=== PATIENT | male | born 1965 ===

== ENCOUNTER 2018-03-10 12:48 | Day surgery (SDC) | payer OTHER ==
[~2018-03-10 12:48] MED LIST: Acetaminophen TAB* 325 MG PO PRN; Buffered Lidocaine 0.9% SYRIN* 5 ML/SYR SYRINGE INTRADERM ONE
[2018-03-10] MEDS ORDERED: fentaNYL* 50 MCG/ML 2 ML VIAL (100 MCG VIAL) ONE (13:00)
[2018-03-10] MEDS ORDERED: Midazolam* 1 MG/ML 2 ML VIAL (2 MG) ONE (13:00)
[2018-03-10] MEDS ORDERED: Povidone Iodine 5% OPTH* 30 ML BTL ONE (14:35)
[2018-03-10] MEDS ORDERED: Neomycin/Polymy/Dex OPTH.SUSP* MAXITROL 0.1% 5 ML ONE (14:35)
[2018-03-10] MEDS ORDERED: Cyclopentolate 1% OPTH.SOL* 2 ML BTL ONE (14:35)
[2018-03-10] MEDS ORDERED: Ketorolac 0.5% OPHTH (NF) 0.5 % 5 ML BTL ONE (14:35)
[2018-03-10] MEDS ORDERED: Proparacaine 0.5% OPHTH.SOL* 15 ML BTL ONE (14:35)
[2018-03-10] MEDS ORDERED: acetaZOLAMIDE TAB* 250 MG ONE (14:35)
[2018-03-10] MEDS ORDERED: Phenylephrine 2.5% OPTH.SOL* 2 ML BTL ONE (14:35)
[2018-03-10] MEDS ORDERED: Lidocaine 1%* 5 ML VIAL ONE (14:35)
[2018-03-10] MEDS ORDERED: Lidocaine 2% EPI 1:200000 MPF*10-20 ML VIAL ONE (14:35)
[2018-03-10 15:11] VITALS: BP 101/59
--- NOTE | 2018-03-11 03:20 | OP ---
OPERATIVE NOTE: DATE OF OPERATION: 03/10/18 - [facility] DATE OF : 63 SURGEON: Pedro Khan M.D. PREOPERATIVE DIAGNOSIS: Cataract, left eye. POSTOPERATIVE DIAGNOSIS: Cataract, left eye. OPERATIVE PROCEDURE: Extracapsular cataract extraction with intraocular lens implant, left eye. DESCRIPTION OF PROCEDURE: The patient was brought to the operating room after being given 1/2% Alcaine with epinephrine drops in the preoperative area. The eye was prepped and draped in the usual sterile fashion. Sterile drape and eyelid speculum were placed. Again, topical 1/2% Alcaine with epinephrine was given. A paracentesis incision was made at the 3 o'clock position with the No.75 blade. Clear cornea incision 2.2 x 2.2-mm was created at the 6 o'clock position starting at the anterior limbus using the 2.2-mm keratome. The anterior chamber was irrigated with 0.4 mL of 1% non-preservative intracameral lidocaine and filled with DisCoVisc. A capsulorrhexis was completed using the cystotome and the Utrata forceps. Hydrodissection was performed with balanced salt solution. The lens nucleus was removed with the Phacoemulsification handpiece without incident. Cortex was removed with the irrigation-aspiration handpiece. The capsular bag was re-inflated using DisCoVisc and an SN60WF 20.5 implant was inserted with the shooter. Pupil was very small, so it was dilated with the Malyugin ring prior to capsulorrhexis. Malyugin ring removed after insertion of the lens. The irrigation- aspiration handpiece was used to remove all residual DisCoVisc. The eye was refilled with balanced salt solution and the wound checked and found to be watertight. Topical Maxitrol drops were given. Indication for complex cataract surgery: Pupil abnormalities requiring pupil dilation device. [id number]/[facility] #: [id number] [facility]
== END 2018-03-10 15:20 | disposition home or self-care (01) ==
LOC: OREAST 12:48
PROVIDERS: ATTEND Specialist
DX: H25.812 Combined forms of age-related cataract, left eye (principal); H21.562 Pupillary abnormality, left eye; E11.9 Type 2 diabetes mellitus without complications; Z79.84 Long term (current) use of oral hypoglycemic drugs; Z87.891 Personal history of nicotine dependence
CPT/HCPCS: A9270-GY; J2250; J3010; V2632

== ENCOUNTER 2019-10-28 11:00 | Inpatient (IN) | payer OTHER ==
--- NOTE | 2019-10-28 11:53 | ED ---
Complex/Multi-Sys Presentation - HPI Summary HPI Summary: Patient is a 54 y/o M presenting to [facility] with complaints of expressive aphasia and confusion. He is alert and oriented x1; patient is capable of answering majority of yes or no questions, limited history is able to be obtained. The patient shows a crudely drawn diagram consisting of arrows and boxes, but he is unable to articulate what this drawing represents. The patient is capable of noting that he is having difficulty expressing himself and communicating. Patient denies chest pain, SOB, N/V, abdominal pain, weakness, numbness, drooling when drinking, [place], recent stress, anxiety, depression, SI. He denies recreational drug usage. Patient denies any previous similar episodes of Sx. The patient had a string under his shirt wrapped around his torso. Home medications and allergies are reviewed. - History Of Current Complaint Chief Complaint: EDGeneral Time Seen by Provider: 10/28/19 11:37 Hx Obtained From: Patient Onset/Duration: Still Present Timing: Constant Associated Signs And Symptoms: Positive: Confusion, Other - negative - numbness , drooling when drinking, recent stress, anxiety, depression, SI. Negative: Weakness, Headache, SOB, Chest Pain, Nausea, Vomiting, Abdominal Pain - Allergies/Home Medications Allergies/Adverse Reactions: Allergies Allergy/AdvReac Type Severity Reaction Status Date / Time No Known Allergies Allergy Verified 03/10/18 13:10 Home Medications: Home Medications Simvastatin (NF) [Zocor (NF)] 40 mg PO BEDTIME 03/05/18 [History Confirmed 10/27] metFORMIN* [Glucophage 1000 MG TAB *] 1,000 mg PO BID 03/05/18 [History Confirmed 10/28/19] Candesartan Cilexetil 4 mg PO DAILY 10/28/19 [History Confirmed 10/28/19] glipiZIDE TAB* [Glucotrol TAB*] 10 mg PO DAILY 10/28/19 [History Confirmed 10/27] PMH/Surg Hx/FS Hx/Imm Hx Endocrine/Hematology History: Reports: Hx Diabetes - type 2 Sensory History: Reports: Hx Cataracts - left eye, Hx Contacts or Glasses - readers Denies: Hx Hearing Aid Opthamlomology History: Reports: Hx Cataracts - left eye, Hx Contacts or Glasses - readers - Cancer History Hx Chemotherapy: No - Surgical History Surgery Procedure, Year, and Place: cataract right eye with IOL 2013 Hx Anesthesia Reactions: No Infectious Disease History: No Infectious Disease History: Denies: Traveled Outside the [place] in Last 30 Days - Family History Known Family History: Positive: Diabetes - Social History Alcohol Use: None Substance Use Type: Reports: None Smoking Status (MU): Former Smoker Amount Used/How Often: smoked for 13 years Review of Systems Negative: Chest Pain Negative: Shortness Of Breath Negative: Abdominal Pain, Vomiting, Nausea Neurological/Mental Status: Other - positive - AMS, difficulty expressing himself Negative: Headache, Weakness, Numbness Psychological: Other - negative - recent stress, SI Negative: Anxious, Depressed All Other Systems Reviewed And Are Negative: Yes Physical Exam - Summary Physical Exam Summary: Constitutional: Well-developed, Well-nourished, Alert. (-) Distressed Skin: Warm, Dry HENT: Normocephalic; Atraumatic Eyes: Conjunctiva normal Neck: Musculoskeletal ROM normal neck. (-) JVD, (-) Stridor, (-) Tracheal deviation Cardio: Tachycardic, Heart sounds normal; Intact distal pulses; The pedal pulses are 2+ and symmetric. Radial pulses are 2+ and symmetric. (-) Murmur Pulmonary/Chest wall: Effort normal. (-) Respiratory distress, (-) Wheezes, (-) Rales Abd: Soft, (-) tenderness, (-) Distension, (-) Guarding, (-) Rebound Musculoskeletal: (-) Edema Lymph: (-) Cervical adenopathy Neuro: Alert, Oriented x1, expressive aphasia noted, otherwise no focal neurological deficits, GCS 14. Psych: Mood and affect Normal Triage Information Reviewed: Yes Vital Signs On Initial Exam: Initial Vitals Temp Pulse Resp BP Pulse Ox 97.1 F 110 20 140/93 98 10/28/19 11:06 10/28/19 11:06 10/28/19 11:06 10/28/19 11:06 10/28/19 11:06 Vital Signs Reviewed: Yes Procedures - Sedation Patient Received Moderate/Deep Sedation with Procedure: No Diagnostics - Vital Signs Vital Signs Temp Pulse Resp BP Pulse Ox 10/28/19 11:11 140/93 10/28/19 11:06 97.1 F 110 20 140/93 98 - Laboratory Result Diagrams: 10/28/19 12:39 10/28/19 12:39 Lab Statement: Any lab studies that have been ordered have been reviewed, and results considered in the medical decision making process. - CT BRAIN CT CT Interpretation Completed By: Radiologist Summary of CT Findings: IMPRESSION: No intracranial mass or hemorrhage is noted. THIS REPORT WAS REVIEWED BY ED PHYSICIAN. - EKG 1130 Cardiac Rate: Tachycardia - rate of 103 BPM EKG Rhythm: Sinus Tachycardia Summary of EKG Findings: EKG showed sinus tachycardia with rate of 103 BPM, no ischemic changes, no STEMI. ED physician has reviewed and interpreted this EKG. National Institutes Of Health - NIH Scale Level of Consciousness: Alert/Keenly Responsive Ask Patient the Month and His/Her Age: Neither Correct/Aphasic Ask Pt to Open/Close Eyes and Metal Buggy Operator/Release Non-Paretic Hand: Both Correctly Best Gaze (Only Horizontal Eye Movement): Normal Visual Field Testing: No Visual Loss Facial Paresis-Pt to Smile & Close Eyes or Grimace Symmetry: Normal/Symmetrical Motor Function - Right Arm: No Drift-Holds 10 Seconds Motor Function - Left Arm: No Drift-Holds 10 Seconds Motor Function - Right Leg: No Drift-Holds 10 Seconds Motor Function - Left Leg: Drifts LT 10 seconds Limb Ataxia-Must be out of Proportion to Weakness Present: Absent Sensory (Use Pinprick to Test Arms/Legs/Trunk/Face): Normal Best Language (Describe Picture, Name Items): Some Loss Dysarthria (Read Several Words): Normal Extinction and Inattention: No Abnormality Total Score: 4 Complex Multi-Symp Course/Dx Course Of Treatment: Patient is a 54 y/o M presenting to [facility] with complaints of expressive aphasia and confusion. He is alert and oriented x1; patient is capable of answering majority of yes or no questions, limited history is able to be obtained. The patient shows a crudely drawn diagram consisting of arrows and boxes, but he is unable to articulate what this drawing represents. The patient is capable of noting that he is having difficulty expressing himself and communicating. Patient denies chest pain, SOB, N/V, abdominal pain, weakness , numbness, drooling when drinking, [place], recent stress, anxiety, depression, SI. He denies recreational drug usage. Patient denies any previous similar episodes of Sx. On physical exam, patient is noted to be tachycardic, alert and oriented x1 with expressive aphasia and otherwise no focal neurological deficits, GCS 14. Patient's case was discussed with Dr. Lim, Dr. Lim will evaluate the patient. EKG showed sinus tachycardia with rate of 103 BPM, no ischemic changes , no STEMI. Bloodwork was obtained and within normal limits with exception of chloride 98, glucose 236, lactic acid 3.1. Tox screen was negative. Dr. Lim evaluated the patient and reviewed Brain CT. Dr. Lim notes infarct on CT imaging. 324 mg ASA and 300 mg Plavix administered per Dr. Lim's recommendation, Dr. Lim placed further orders for the patient. 1320 - Patient' s case was discussed with Dr. Hernández, Dr. Hernández accepts for admission. - Diagnoses Provider Diagnoses: CVA (cerebral vascular accident) - Physician Notifications Discussed Care Of Patient With: Diana Lim Time Discussed With Above Provider: 12:06 Instructed by Provider To: Other - Patient's case was discussed with Dr. Lim, Dr. Lim will evaluate the patient. 1313 - Dr. Lim evaluated the patient and reviewed Brain CT, notes infarct. ASA and Plavix recommended. Dr. Lim placed orders. 1320 - Patient's case was discussed with Dr. Hernández, Dr. Hernández accepts for admission. Discharge ED - Sign-Out/Discharge Documenting (check all that apply): Patient Departure - admit - Discharge Plan Condition: Fair Disposition: ADMITTED TO [facility] Referrals: Pedro Gallo MD [Primary Care Provider] - - Billing Disposition and Condition Condition: FAIR Disposition: Admitted to [facility] - Attestation Statements Document Initiated by Julián: Yes Documenting Scribe: BHAVNA MILAN Provider For Whom Julián is Documenting (Include Credential): DAVE CELESTE DO Scribe Attestation: BHAVNA Westbrook, michaeled for DAVE CELESTE DO on 10/28/19 at 1535. Scribe Documentation Reviewed: Yes Provider Attestation: The documentation as recorded by the BHAVNA fay accurately reflects the service I personally performed and the decisions made by me, DAVE CELESTE DO Status of Scribe Document: Viewed
[2019-10-28 12:57] LABS: ABS Basophils 0.1 10^3/ul (0-0.2); ABS Eosinophils 0.1 10^3/ul (0-0.6); ABS Lymphocytes 1.8 10^3/ul (1.0-4.8); ABS Monocytes 0.5 10^3/ul (0-0.8); ABS Neutrophils 6.1 10^3/ul (1.5-7.7); Eosinophil % 1.4 %; Hematocrit 42 % (42-52); Lymphocyte % 21.2 %; Mean Corpuscular HGB Conc 36 g/dL (31-36); Mean Corpuscular Hemoglobin 31 pg (27-31); Mean Corpuscular Volume 85 fL (80-94); Mean Platelet Volume 8.8 fL (7.4-10.4); Nucleated Red Blood Cells % 0.1; Platelet Count 227 10^3/uL (150-450); Red Cell Distribution Width 13 % (10-15); White Blood Count 8.6 10^3/uL (3.5-10.8)
[2019-10-28 13:09] LABS: ALT 18 U/L (7-52); AST 20 U/L (13-39); Albumin 4.2 g/dL (3.2-5.2); Albumin/Globulin Ratio 1.6 (1-3); Alkaline Phosphatase 51 U/L (34-104); Anion Gap 9 mmol/L (2-11); BUN/Creatinine Ratio 15.9 (8-20); Blood Urea Nitrogen 13 mg/dL (6-24); CO2 Carbon Dioxide 28 mmol/L (22-32); Calcium 9.9 mg/dL (8.6-10.3); Chloride 98 mmol/L (101-111); EGFR Non-African American 97.5 (>60); Globulin 2.6 g/dL (2-4); Glucose 236 mg/dL (70-100); Potassium 4.5 mmol/L (3.5-5.0); Sodium 135 mmol/L (135-145); Total Protein 6.8 g/dL (6.4-8.9)
[2019-10-28 13:23] LABS: Acetaminophen < 15 mcg/mL; Alcohol < 10 mg/dL (<10); Salicylate < 2.50 mg/dL (<30)
[2019-10-28] MEDS ORDERED: Clopidogrel TAB* 300 MG PO ONE (13:27)
[2019-10-28] MEDS ORDERED: Aspirin TAB* 325 MG PO ONE (13:27)
[2019-10-28] MEDS ORDERED: Aspirin EC TAB* 81 MG TAB.EC PO SCH (13:35)
[2019-10-28] MEDS ORDERED: Aspirin 81 mg CHEW TAB* 81 MG TAB.CHEW PO ONE (13:45)
--- NOTE | 2019-10-28 14:02 | CONSULT ---
Consult Consult: Neurology Inpatient Consult Note Date of service: 10/28/2019 Reason for consult: Neurology was consulted by Sheldon Foster DO to evaluate the patient for stroke. The history was obtained by the patient. Chief complaint: word finding difficulty History of Present Illness: Mr. Nancy Duong is a 54-year-old male with history of DMII and dyslipidemia who presented to [facility] with symptoms of word finding difficulty. The onset was 1700 on 10/27/2019. He was watching television and working from home. According to Mrs. Duong, who I spoke with on the phone, the patient has been extremely stressed out due to the pandemic and the concern about losing his job. She received a confirmation today that he will not be furloughed. She stated that he suddenly was not speaking right and he can get like this when he is frustrated. Yesterday's symptoms were severe. The patient woke up this morning and noticed that his symptoms were not going away. He was then transferred to the ED by his spouse. The patient is aspirin naive. He has no history of stroke. He has trouble communicating thus history was mostly obtained by his spouse via telephone. NIHSS: 3; right facial droop (1-mild), moderate-severe aphasia (2). Labs, Imaging and Other Diagnostics: WBC: 8.6 HgB: 15 Platelets: 227 Lactic acid IMAGING: CT head without contrast completed on 10/28/2019: hypodensity in the left frontal region consistent with an acute MCA vascular territory ischemic stroke. Past Medical and Surgical History: Hypertension, DMII, cataract surgery. Family History: No family history of stroke or seizures. Social History: Works from home since the pandemic. 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 He denied tobacco or alcohol use. Medications: Simvastatin (NF) [Zocor (NF)] 40 mg PO BEDTIME 03/05/18 [History Confirmed 10/27] metFORMIN* [Glucophage 1000 MG TAB *] 1,000 mg PO BID 03/05/18 [History Confirmed 10/28/19] Candesartan Cilexetil 4 mg PO DAILY 10/28/19 [History Confirmed 10/28/19] glipiZIDE TAB* [Glucotrol TAB*] 10 mg PO DAILY 10/28/19 [History Confirmed 10/27] Allergies No Known Allergies Allergy (Verified 03/10/18 13:10) Review of Systems: A 14-point ROS was obtained and otherwise negative except for what was mentioned in the HPI. Physical Exam: Vitals: Vital Signs - 12 hr Temp Pulse Resp BP Pulse Ox 10/28/19 13:24 92 99 10/28/19 13:11 155/90 10/28/19 12:41 100 134/85 97 10/28/19 12:27 102 96 10/28/19 12:11 151/91 10/28/19 11:42 141/86 10/28/19 11:11 140/93 10/28/19 11:06 97.1 F 110 20 140/93 98 General: well nourished, well developed. Alert, cooperative, no apparent distress, appears stated age. Head: normocephalic, without obvious abnormality Eyes: conjunctivae/corneas clear Neck: supple, symmetrical. No carotid bruit. No lymphadenopathy. Lungs: clear to auscultation bilaterally, non-labored CV: regular rhythm, S1, S2 normal, radial pulses palpable Extremities: normal range of motion with no cyanosis. Skin: no skin lesions or lacerations Psych: affect-broad and normal mood. Easy to establish rapport. Neurological examination: Mental status: awake; alert and oriented to person, place, time, & general circumstances; He has moderate expressive aphasia. He is able to follow 1-2 step commands, speak 1-2 word sentences. He is able to write but switches numbers (eg, 706 instead of 607). Paraphasic errors. He was able to sing and repeat without difficulty. Cranial nerves: I: not tested II, III, IV, : normal confrontation B/L, Pupils midrange and reactive to light , normal consensual response; extraocular muscles are intact; no ptosis; no conjugate or asymmetrical nystagmus V 1/2/3: sensation is intact on forehead, cheeks, and jaw region VII: Mild right facial droop VIII: able to hear throughout the history process IX & X: symmetric palatal elevation XI: normal strength against resistance XII: tongue is symmetrical & midline with no atrophy or fasciculations Motor (R/L): no abnormal movements, no pronator drift. Normal bulk and tone throughout. No fasciculations. Neck extension 5. Shoulder ROM is full. Shoulder abduction 5/5. Elbow flexion 5/5, extension 5/5. Wrist flexion 5/5, extension 5/5. Finger flexion 5/5, extension 5/5, abduction 5/5. Hip flexion 5/5, abduction 5/5. Knee flexion 5/5, extension 5/5. Ankle dorsiflexion 5/5, plantarflexion 5/5. Great toe extension 5/5. Reflexes R L Brachioradialis 2+ 2+ Biceps 2+ 2+ Triceps 2+ 2+ Patella 2+ 2+ Ankle 1 1 Plantar flexor flexor Sensation is intact to light touch throughout. Normal vibration and proprioception at the great toes. Coordination: normal finger to nose and rapid alternating movements. Gait & Station: deferred Assessment: Mr. Nancy Duong is a 54-year-old man with a history of dyslipidemia and DMII who presented to [facility] on 10/28/2019 with sudden onset aphasia. 1. Acute left MCA vascular territory ischemic infarction of unclear etiology. We will evaluated for a cardio emboli or [id number] emboli from proximal atherosclerotic disease. NIHSS:3. He is not a candidate for alteplase therapy. We did not assess for mechanical thrombectomy due to his low NIHSS. The stroke is seen on CT involving the left frontal lobe. Recommendations: - Admit to the hospitalist service - Neuro checks every 4 hours - MRI brain, MRA head, and MRA neck without contrast to help understand the etiology of the stroke. - EEG to evaluate for post-stroke seizures given his elevated lactic acid and questionable tongue injury. - Keep SBP between 130-<180 mmHg - HI started him on normal saline 75 ml/hr to keep him hydrated and slightly increase his BP without using pressors. - Bedside swallow evaluation - Aspirin 325 mg x 1 and Plavix 300 mg x 1. Continue aspirin 81 mg and Plavix 75 mg daily for 21 days (discontinue Plavix 11/18/2019). - Atorvastatin 80 mg nightly. - Stroke education completed. - DVT prophylaxis: SCDs - PT/OT/MAPPING ENGINEER evaluation and treatment Anticipated discharge 10/29/2019. Discussed the above recommendations with Dr. Kristin Lim MD Date: 10/28/2019 Time: 7424
[2019-10-28 14:06] LABS: Cholesterol 187 mg/dL; HDL Cholesterol 47.3 mg/dL; LDL Cholesterol 87 mg/dL; Triglycerides 264 mg/dL
[2019-10-28 14:29] LABS: Urine Appearance Clear; Urine Bilirubin Negative (Negative); Urine Blood 1+ (Negative); Urine Color Yellow; Urine Glucose 3+(>=500 mg/dL) (Negative); Urine Ketones Trace (Negative); Urine Nitrite Negative (Negative); Urine Protein 1+(30 mg/dL) (Negative); Urine Specific Gravity 1.012 (1.010-1.030); Urine Urobilinogen Negative (Negative)
[2019-10-28 14:30] LABS: TSH (Thyroid Stimulating Horm) 1.37 mcIU/mL (0.34-5.60)
[2019-10-28 14:31] LABS: Urine Bacteria Absent (Absent); Urine Red Blood Cell 1+(3-5/hpf) (Absent); Urine White Blood Cell Absent (Absent)
[2019-10-28] MEDS ORDERED: Al Hydrox/Mg Hydrox/Simet LIQ* 30 ML UDC PO PRN (14:34)
[2019-10-28] MEDS ORDERED: Senna TAB 8.6 mg* TAB PO PRN (14:34)
[2019-10-28] MEDS ORDERED: Acetaminophen TAB* 325 MG PO PRN (14:34)
[2019-10-28] MEDS ORDERED: Dextrose 50% Syringe 50 ML* 25 GM/50 ML SYRINGE IV PUSH PRN (14:44)
[2019-10-28 14:50] LABS: Urine Benzodiazepine Screen None Detected (None Detect); Urine Opiates Screen None Detected (None Detect)
[2019-10-28] MEDS ORDERED: Cyanocobalamin INJ * 1,000 MCG/ML VIAL 1 ML VIAL IM ONE (15:32)
[2019-10-28] MEDS ORDERED: Cyanocobalamin TAB* 500 MCG PO SCH (16:00)
--- NOTE | 2019-10-28 16:51 | HP ---
CC: Dr. Gallo * HISTORY AND PHYSICAL: DATE OF ADMISSION: 10/28/19 ATTENDING PHYSICIAN WHILE IN THE HOSPITAL: Dr. Nevaeh Hernández * (dictated by LEWIS Anthony). PRIMARY CARE PROVIDER: Dr. Gallo. CHIEF COMPLAINT: Difficulty with word finding. HISTORY OF PRESENT ILLNESS: Nancy Duong is a 54-year-old male with past medical history significant for hyperlipidemia, diabetes mellitus type 2, and hypertension who presents to the emergency department today due to ongoing difficulty with word finding. This started yesterday evening and he went to bed and woke up and it was still going on and decided to proceed to the emergency department. He was in his normal state of health when he woke up yesterday morning. He is able to answer yes or no questions very well and he is able to make some sentences but at times has difficulty with word finding and cannot complete sentences and does state the wrong word at times. He denies chest palpitations, dizziness, lightheadedness, abnormal gait, chest pain , difficulty breathing, numbness, weakness, tingling of the extremities, changes in his vision. He was already seen in the emergency department by neurologist, Dr. Lim, who has made recommendations as described below. PAST MEDICAL HISTORY: 1. Hyperlipidemia. 2. Diabetes mellitus type 2. 3. Hypertension. PAST SURGICAL HISTORY: Bilateral cataract surgery. CURRENT MEDICATIONS: 1. Metformin 1000 mg p.o. b.i.d. 2. Glipizide 10 mg p.o. daily. 3. Simvastatin 40 mg p.o. at bedtime. 4. Candesartan 4 mg p.o. daily. ALLERGIES: No known drug allergies. FAMILY HISTORY: His parents are living in their late 70s early 80s. They are both overall healthy. Denies history of CVA or coronary artery disease. SOCIAL HISTORY: The patient has 2 children, he lives with them and his . He works in IT. He is a previous smoker, but quit smoking years ago. He denies illicit drug use and drinking. His surrogate medical decision maker should he need one is his ; her name is Leda Clement, her phone number . REVIEW OF SYSTEMS: An 11-point review of systems was completed and all pertinent positives and negatives are above in the HPI and all other systems are negative. PHYSICAL EXAMINATION GENERAL: Middle aged male, lying in hospital bed, appearing comfortable, in no acute distress. VITAL SIGNS: Temperature 97.1, pulse 110, respiratory rate 20, oxygen saturation 98% on room air, blood pressure 140/93. HEENT: Head: Normocephalic, atraumatic. Eyes: PERRL. Sclerae anicteric. EOMI. No nystagmus. ENT: Mucous membranes moist. Smile is symmetrical. Tongue is midline. NECK: Supple. LUNGS: Clear to auscultation throughout. CARDIO: Regular rate and rhythm without murmurs, rubs, or gallops. ABDOMEN: Soft, nontender, nondistended. EXTREMITIES: No clubbing, cyanosis, or edema. NEURO: The patient is alert and oriented x3. His speech is clear, however, does have expressive aphasia. No dysarthria is noted. His strength is 5/5 in all extremities. His sensation is grossly to touch throughout. Face is symmetrical. PSYCH: The patient is pleasant and cooperative. SKIN: Warm, dry, and intact. PERTINENT STUDIES/LAB DATA: White blood cell count 8.6, hemoglobin 15.0, hematocrit 42, platelet count 227. Sodium 135, potassium 4.0, chloride 98, carbon dioxide 28, anion gap 9, BUN 13, creatinine 0.82, glucose 236, lactic acid 3.1, calcium 9.9. LFTs are unremarkable. LDL is 87, HDL is 47.3. TSH is 1.37. Serum salicylates negative. Serum acetaminophen negative. Serum alcohol is negative. Brain CT, impression: No intracranial mass or hemorrhage is noted. EKG: Normal sinus rhythm, rate of 103 beats per minute. Overall, no ST elevations or depressions or T-wave inversions. There is isolated T-wave flattening in lead III. ASSESSMENT AND PLAN: Nancy Duong is a 54-year-old male with past medical history significant for hyperlipidemia, diabetes, hypertension who presents today due to expressive aphasia. The patient will be admitted OBV for: 1. Expressive aphasia. It appears most consistent with a cerebrovascular accident. The patient has already been seen by neurology consult. CTA is negative for acute hemorrhage. MRA head and neck will be ordered per Dr. Lim' s recommendations investigating for large vessel occlusion is pending at this time and MRI of the brain is pending as well. An EEG has been ordered per Dr. Lim's recommendation, however, subclinical seizures seems less likely to me continue at this time. Given the likelihood of cerebrovascular accident, he has been started on an aspirin load of 325 mg and Plavix load of 300 mg and I will continue 81 mg of aspirin and 75 mg of aspirin tomorrow. He takes simvastatin at home, I will be increasing it to him to a high intensity statin of Lipitor. He is outside the tPA window due to his onset of symptoms starting yesterday evening. I have ordered speech therapy for the patient and PT/OT has been ordered as well. He has passed the dysphagia screen of liquids with the nursing staff already. His lactic acid was elevated to 3.1 when he arrived and I will repeat this. This does give small concern for possible subclinical seizure, though it seems less likely still. 2. Diabetes. I will be holding the patient's home oral medications. I will order fingersticks and insulin lispro sliding scale, and hemoglobin A1c has been ordered as well. He will get a carbohydrate consistent diet. 3. Hypertension. The patient takes candesartan at home. I will continue a similar RACHEL inhibitor, however, I will place holding precautions for systolic blood pressure less than 130 as we are allowing permissive hypertension up to a systolic of [address] Lim's recommendations. 4. Hyperlipidemia. Change the statin as described above in the first plan. 5. FEN. The patient will have carbohydrate consistent diet. No electrolytes are needed to be replaced at this time and I see no need for IV fluids. 6. DVT prophylaxis. The patient has a VTE risk score of 1. I will order SCDs and the patient should ambulate. 7. Code status. The patient is full code. TIME SPENT: Approximately 45 minutes was spent on this admission, approximately half of this time was spent at bedside evaluating the patient and discussing the plan of care. This case has been reviewed by my attending, Dr. Nevaeh Hernández, and she agrees with the plan of care. LEWIS ANTHONY [id number]/[facility] #: [id number] [facility]
[2019-10-28] MEDS: Insulin LISPRO* 1 UNITS UNIT SUBCUT SCH (17:05)
[2019-10-28] MEDS: NS 0.9% 1000 ML** 1,000 ML IV SCH (17:24)
[2019-10-28] MEDS: Cyanocobalamin INJ * 1,000 MCG/ML VIAL 1 ML VIAL IM ONE ×2 (18:25→18:32)
--- NOTE | 2019-10-28 19:28 | EEG ---
ELECTROENCEPHALOGRAPHY: DATE OF STUDY: 10/28/19 DURATION OF THE RECORDIN - 4614. MEDICATIONS: 1. Lipitor. 2. Aspirin. 3. Plavix. CLINICAL STATE: Awake. CLINICAL PROBLEM: Mr. Duong is a 54-year-old right-handed man, who presented with acute aphasia. This EEG was obtained to evaluate for epileptiform abnormalities or electrographic seizures. REPORT: The waking background showed appropriate organization with clearly defined anterior-posterio r voltage and frequency gradients. There was a well-defined posterior dominant rhythm of 9 Hz, which was symmetrical and showed normal reactivity. Anteriorly, there was an expected pattern of lower vo ltage, irregular, mixed fast frequencies. Hyperventilation and photic stimulation were not performed . Single electrode EKG showed normal sinus rhythm with a rate of 90 beats per minute. Throughout th e recording, there were no epileptiform discharges. There were intermittent medium amplitude, polymor phic, 3-5 Hz theta and delta slowing lasting for 2 seconds over the left frontotemporal region. CLINICAL IMPRESSION: This is an abnormal awake EEG due to the presence of intermittent focal slowing over the left frontotemporal region. These findings are suggestive of focal neuronal dysfunction in the left frontotemporal region, which is consistent with the patient's recent history of acute strok e in that distribution. There were no epileptiform discharges or electrographic seizures. [id number]/[facility] #: [id number]
[2019-10-28] MEDS ORDERED: Atorvastatin* 80 MG TAB PO ONE (21:00)
[2019-10-28] MEDS: Atorvastatin* 80 MG TAB PO SCH (22:00)
[2019-10-29] MEDS ORDERED: Atorvastatin* 80 MG TAB PO SCH (09:00)
[2019-10-29] MEDS ORDERED: Cyanocobalamin INJ * 1,000 MCG/ML VIAL 1 ML VIAL IM ONE ×2 (09:00)
[2019-10-29] MEDS ORDERED: CANDESARTAN CILEXETIL 4 MG PO SCH (09:00)
[2019-10-29] MEDS ORDERED: Valsartan TAB* 40 MG PO SCH (09:00)
[2019-10-29] MEDS: Insulin LISPRO* 1 UNITS UNIT SUBCUT SCH ×3 (09:06→17:19)
[2019-10-29] MEDS: Aspirin EC TAB* 81 MG TAB.EC PO SCH (09:32)
[2019-10-29] MEDS: Cyanocobalamin TAB* 500 MCG PO SCH (09:33)
[2019-10-29] MEDS: Clopidogrel TAB* 75 MG PO SCH (09:33)
--- NOTE | 2019-10-29 11:12 | PN ---
Subjective Date of Service: 10/29/19 Interval History: Mr. Duong reports that he is doing well today. He believes that his word finding difficulties are better though he does not feel like he is back to normal. He denies chest pain, SOB, nausea, or abdominal pain. Objective Active Medications: Acetaminophen (Tylenol Tab*) 650 mg PO Q4H PRN Al Hydrox/Mg Hydrox/Simethicone (Maalox Plus*) 30 ml PO Q6H PRN Aspirin (Aspirin Ec Tab*) 81 mg PO DAILY [facility] Atorvastatin Calcium (Lipitor*) 80 mg PO 2100 [facility] Clopidogrel Bisulfate (Plavix Tab*) 75 mg PO DAILY [facility] Cyanocobalamin (Vitamin B12 Tab*) 1,000 mcg PO DAILY [facility] Dextrose (D50w Syringe 50 Ml*) 12.5 gm IV PUSH .FOR FS < 60 - SS PRN Sodium Chloride (Ns 0.9% 1000 Ml) 1,000 mls @ 75 mls/hr IV PER RATE [facility] Insulin Human Lispro (Humalog*) 0 units SUBCUT AC [facility]; Protocol Senna (Senokot 8.6 Mg Tab*) 1 tab PO BID PRN Valsartan (Diovan Tab*) 20 mg PO DAILY [facility] Vital Signs: Temp Pulse Resp BP Pulse Ox 98.2 F 99 20 110/73 97 10/29/19 07:35 10/29/19 07:35 10/29/19 07:35 10/29/19 07:35 10/29/19 07:35 Oxygen Devices in Use Now: None Appearance: Male sitting up in bed in NAD Eyes: No Scleral Icterus Ears/Nose/Mouth/Throat: Mucous Membranes Moist Neck: Trachea Midline Respiratory: Symmetrical Chest Expansion and Respiratory Effort, Clear to Auscultation Cardiovascular: NL Sounds; No Murmurs; No JVD, No Edema Abdominal: NL Sounds; No Tenderness; No Distention Extremities: No Edema Skin: No Rash or Ulcers Neurological: Alert and Oriented x 3, NL Muscle Strength and Tone, - - Can say short sentences at times, often cannot find word, no other deficit noted Nutrition: Taking PO's Result Diagrams: 10/28/19 12:39 10/28/19 12:39 Assess/Plan/Problems-Billing Assessment: Ms. Cruz is a 54 yo M with PMH of HTN, HLD, and DM who was admitted on with difficulty with word finding found to have left frontal lobe ischemic CVA. - Patient Problems (1) CVA (cerebral vascular accident) Comment: - Appreciate consultation from neurology - MRI brain confirms left frontal lobe ischemic CVA - MRA head and neck negative for large vessel occlusion - Echo pending - EEG without epileptiform discharges - Continue aspirin, plavix (21 days), atorvastatin - Goal SBP 130-180, hold valsartan, continue NS - Neuro checks q 4h (2) Vitamin B12 deficiency Comment: - Dr Lim notes that Vit B12 deficiency can raise homocysteine which can increase stroke risk, Vit B12 IV supplementation continues - No anemia noted (3) Diabetes Comment: - BGs 200-300 - Continue lispro SSI coverage - Hold home glipizide and metformin - HgbA1c pending (4) Hypertension Comment: - SBP 110-140s - Hold valsartan given goal SBP is 130-180s (5) Hyperlipidemia Comment: - Continue atorvastatin (started this admission) (6) DVT prophylaxis Comment: - SCDs (7) Full code status Comment: Status and Disposition: Inpatient. Anticipate discharge to home when medically stable.
[2019-10-29] MEDS: NS 0.9% 1000 ML** 1,000 ML IV SCH (14:25)
[2019-10-29] MEDS ORDERED: NS 0.9% 1000 ML** 1,000 ML IV ONE (18:36)
[2019-10-29] MEDS: Atorvastatin* 80 MG TAB PO SCH (19:47)
[2019-10-30] MEDS: Insulin LISPRO* 1 UNITS UNIT SUBCUT SCH ×3 (08:31→17:08)
[2019-10-30] MEDS: Clopidogrel TAB* 75 MG PO SCH (08:33)
[2019-10-30] MEDS: Aspirin EC TAB* 81 MG TAB.EC PO SCH (08:33)
[2019-10-30] MEDS: Cyanocobalamin TAB* 500 MCG PO SCH (08:34)
[2019-10-30] MEDS ORDERED: Cyanocobalamin INJ * 1,000 MCG/ML VIAL 1 ML VIAL IM ONE (09:00)
--- NOTE | 2019-10-30 10:53 | PN ---
Subjective Date of Service: 10/30/19 Interval History: Mr. Duong continues to have problems with word finding but no other deficits. He denies complaint but is eager to be discharged. Objective Active Medications: Acetaminophen (Tylenol Tab*) 650 mg PO Q4H PRN Al Hydrox/Mg Hydrox/Simethicone (Maalox Plus*) 30 ml PO Q6H PRN Aspirin (Aspirin Ec Tab*) 81 mg PO DAILY [facility] Atorvastatin Calcium (Lipitor*) 80 mg PO 2100 [facility] Clopidogrel Bisulfate (Plavix Tab*) 75 mg PO DAILY [facility] Cyanocobalamin (Vitamin B12 Tab*) 1,000 mcg PO DAILY [facility] Dextrose (D50w Syringe 50 Ml*) 12.5 gm IV PUSH .FOR FS < 60 - SS PRN Sodium Chloride (Ns 0.9% 1000 Ml) 1,000 mls @ 75 mls/hr IV PER RATE [facility] Insulin Human Lispro (Humalog*) 0 units SUBCUT AC [facility]; Protocol Senna (Senokot 8.6 Mg Tab*) 1 tab PO BID PRN Vital Signs: Temp Pulse Resp BP Pulse Ox 98.7 F 91 18 127/76 96 10/30/19 03:25 10/30/19 03:25 10/30/19 03:25 10/30/19 03:25 10/30/19 03:25 Oxygen Devices in Use Now: None Appearance: Male sitting up in chair in NAD Eyes: No Scleral Icterus Ears/Nose/Mouth/Throat: Mucous Membranes Moist Neck: Trachea Midline Respiratory: Symmetrical Chest Expansion and Respiratory Effort, Clear to Auscultation Cardiovascular: NL Sounds; No Murmurs; No JVD, No Edema Abdominal: NL Sounds; No Tenderness; No Distention Extremities: No Edema Skin: No Rash or Ulcers Neurological: Alert and Oriented x 3, NL Muscle Strength and Tone, - - Word finding difficulty Nutrition: Taking PO's Result Diagrams: 10/28/19 12:39 10/28/19 12:39 Assess/Plan/Problems-Billing Assessment: Ms. Cruz is a 54 yo M with PMH of HTN, HLD, and DM who was admitted on with difficulty with word finding found to have left frontal lobe ischemic CVA. - Patient Problems (1) CVA (cerebral vascular accident) Comment: - Appreciate consultation from neurology - MRI brain confirms left frontal lobe ischemic CVA - MRA head and neck negative for large vessel occlusion - Echo pending - EEG without epileptiform discharges - Continue aspirin, plavix (21 days), atorvastatin - BP at goal (Goal SBP 130-180), hold valsartan, continue NS - Neuro checks q 4h (2) Vitamin B12 deficiency Comment: - Dr Lim notes that Vit B12 deficiency can raise homocysteine (level pending) which can increase stroke risk, Vit B12 IV supplementation ordered for this AM - No anemia noted (3) Diabetes Comment: - BGs 190-270 - Continue lispro SSI coverage - Hold home glipizide and metformin - HgbA1c ~ 10, will need outpatient follow up for DM management education and medication adjustment (4) Hypertension Comment: - SBP 110-140s - Hold valsartan given goal SBP is 130-180s (5) Hyperlipidemia Comment: - Continue atorvastatin (started this admission) (6) DVT prophylaxis Comment: - SCDs (7) Full code status Comment: Status and Disposition: Inpatient. Anticipate discharge to home when medically stable, after echo
[2019-10-30] MEDS: Folic Acid TAB* 1 MG PO SCH (11:59)
[2019-10-30] MEDS: Pyridoxine TAB* 50 MG PO SCH (12:00)
--- NOTE | 2019-10-30 15:06 | PN ---
Subjective Date of Service: 10/30/19 Length of Stay: 2 Days Neurology is following for stroke. Interval History: The patient continues to have word finding difficulty. He has no headaches or weakness. He is walking around the hallway and has no acute complaints. He is eager to go home but is waiting for the TTE. Review of Systems: Denied CP, SOB, or palpitations. Objective Active Medications: Acetaminophen (Tylenol Tab*) 650 mg PO Q4H PRN PRN Reason: MILD PAIN or TEMP > 100.4 Al Hydrox/Mg Hydrox/Simethicone (Maalox Plus*) 30 ml PO Q6H PRN PRN Reason: INDIGESTION Aspirin (Aspirin Ec Tab*) 81 mg PO DAILY [facility] Last Admin: 10/30/19 08:33 Dose: 81 mg Atorvastatin Calcium (Lipitor*) 80 mg PO 2100 [facility] Last Admin: 10/29/19 19:47 Dose: 80 mg Clopidogrel Bisulfate (Plavix Tab*) 75 mg PO DAILY [facility] Last Admin: 10/30/19 08:33 Dose: 75 mg Cyanocobalamin (Vitamin B12 Tab*) 1,000 mcg PO DAILY [facility] Last Admin: 10/30/19 08:34 Dose: 1,000 mcg Dextrose (D50w Syringe 50 Ml*) 12.5 gm IV PUSH .FOR FS < 60 - SS PRN PRN Reason: FS < 60 Folic Acid (Folvite Tab*) 1 mg PO DAILY [facility] Last Admin: 10/30/19 11:59 Dose: 1 mg Sodium Chloride (Ns 0.9% 1000 Ml) 1,000 mls @ 75 mls/hr IV PER RATE [facility] Last Admin: 10/29/19 14:25 Dose: 75 mls/hr Insulin Human Lispro (Humalog*) 0 units SUBCUT [facility]; Protocol Last Admin: 10/30/19 11:57 Dose: 6 units Pyridoxine HCl (Vitamin B6 Tab*) 100 mg PO DAILY [facility] Last Admin: 10/30/19 12:00 Dose: 100 mg Senna (Senokot 8.6 Mg Tab*) 1 tab PO BID PRN PRN Reason: CONSTIPATION Vital Signs 10/30/19 10/30/19 07:00 10:50 Temperature 98.5 F 98.6 F Pulse Rate 90 90 Respiratory 16 20 Rate Blood Pressure 129/78 137/85 (mmHg) O2 Sat by Pulse 98 96 Oximetry Intake and Output Last 24 Hours 10/28/19 10/29/19 10/30/19 10/31/19 06:59 06:59 06:59 06:59 Intake Total 1671 2498 960 Output Total 0 Balance 1671 2498 960 Weight 180 lb Intake: IV Fluids 51 428 Normal saline 428 Oral 1620 2070 960 Output: Urine 0 Other: Estimated Void Large Medium # Voids 1 1 3 Oxygen Devices in Use Now: None Neurology Exam: General: Well nourished, well developed, and in no acute distress HEENT: Normocephelic/atraumatic, sclera anicteric, mucous membranes moist Neck: Supple Chest: Clear to auscultation bilaterally Cardiovascular: Regular rate and rhythm without murmurs, rubs, gallops Abdomen: Soft, non-tender/non-distended Extremities: No clubbing, cyanosis, or edema Neurological Findings: NIHSS: 2 Awake, alert, and oriented to person, place, and time. Speech and language: moderate expressive aphasia. Cranial Nerve: PERRL, EOM intact, VFF, no nystagmus, face symmetric bilaterally , facial sensation intact, hearing intact to finger rub bilaterally, palate elevates symmetrically, tongue midline, SCM and Trapezius s/s. Motor: s/s throughout, proximal and distal extremities x4 tone/bulk normal Sensation: intact to LT/PP bilaterally upper and lower extremities Deep Tendon Reflex: 2+ symmetric in the upper/lower extremities, Babinski - down going Finger to nose, rapid alternating movements intact without tremor, no dysdiadochokinesia Gait: intact with good arm swing and stride Result Diagrams: 10/28/19 12:39 10/28/19 12:39 Additional Lab and Data: Cholesterol: 187 LDL: 87 HDL: 47 Vitamin B12: 91 TSH:1.37 Glucose: 271 Hemoglobin a1C: 10.7 Diagnostic Imaging: CT head without contrast completed on 10/28/2019: hypodensity in the left frontal region consistent with an acute MCA vascular territory ischemic stroke. MRI brain without contrast 10/27: 3.5 cm acute early subacute ischemic infarction at the left frontal lobe to the left insula. MRA head and neck 10/27: no hemodynamically significant stenosis or occlusion. EEG 10/27: Focal slowing over the left frontal region consistent with the patient' s history of acute stroke. EKG: sinus tachycardia. no atrial fibrillation. TTE: pending Assessment/Plan Assessment: Mr. Nancy Duong is a 54-year-old man with a history of dyslipidemia and poorly controlled DMII who presented to [facility] ED on 10/28/2019 with sudden onset aphasia. 1. Acute left MCA vascular territory ischemic infarction of unclear etiology. Risk factors for atherosclerotic disease include hypertension and uncontrolled diabetes. Another risk factor include vitamin B12 deficiency (patient is a vegetarian) which can elevate the homocysteine level increase the risk for thrombosis. We will evaluated for a cardio emboli or [id number] emboli from proximal atherosclerotic disease. NIHSS is 2 today. He is not a candidate for alteplase therapy. We did not assess for mechanical thrombectomy due to his low NIHSS. The stroke is seen on CT involving the left frontal lobe. 2. Vitamin B12 deficiency due to inadequate intake. Recommendations: - Neuro checks every 4 hours - Pending TTE with bubble study. If negative for PFO and if there is no evidence of atrial or ventricular thrombus, he can be discharged home with the plan to follow-up with his PCP to be referred to cardiology for a loop recorder. I personally discussed this with the patient and his spouse via telephone and they both agreed. - SBP: keep normotensive - Continue aspirin 81 mg and Plavix 75 mg daily for 21 days (discontinue Plavix 11/18/2019). - Atorvastatin 40 mg nightly. - Cyanocobalamin 1,000 mcg, Pyridoxine 100 mg, and folic acid 1 mg PO daily. He received a total of 3 doses of IM Cyanocobalamin injection. I have ordered a fourth dose for tomorrow. - Pending methylmalonic acid and homocysteine levels. He will require cyanocobalamin supplements indefinitely. He can discontinue the folic acid and pyridoxine in 6 months. - Stroke education completed. - DVT prophylaxis: SCDs - He will benefit from outpatient speech evaluation. Please provide the patient with speech pathologists in the area that he can follow-up with. No need for PT/OT evaluation and treatment as he has no motor deficits. Anticipated discharge 10/31/2019. We will arrange a 4-6 week follow-up in our clinic. He will be contacted with an appointment.
[2019-10-30] MEDS: NS 0.9% 1000 ML** 1,000 ML IV SCH (19:21)
[2019-10-30] MEDS: Atorvastatin* 80 MG TAB PO SCH (20:53)
[2019-10-31] MEDS ORDERED: Cyanocobalamin INJ * 1,000 MCG/ML VIAL 1 ML VIAL IM ONE (09:00)
[2019-10-31] MEDS: Aspirin EC TAB* 81 MG TAB.EC PO SCH (09:09)
[2019-10-31] MEDS: Cyanocobalamin TAB* 500 MCG PO SCH (09:09)
[2019-10-31] MEDS: Folic Acid TAB* 1 MG PO SCH (09:09)
[2019-10-31] MEDS: Clopidogrel TAB* 75 MG PO SCH (09:09)
[2019-10-31] MEDS: Insulin LISPRO* 1 UNITS UNIT SUBCUT SCH ×2 (09:13→11:50)
[2019-10-31] MEDS: Pyridoxine TAB* 50 MG PO SCH (09:19)
--- NOTE | 2019-10-31 11:14 | ECHO ---
*[facility]* [place] [address] Fax #: [phone] Transthoracic Echocardiogram Patient: Nancy Duong : 1965 Study Date: 10/31/2019 Age: 54 Gender: M HR: 95 bpm Height: 67 in /170.2 cm BSA: 1.93 m^2 Weight: 179.6 lb /81.6 kg BMI: 28.2 kg/m^2 *Hogshead Head Matcher: * Alondra Blanchard [facility] *Referring Physician: * Diana Lim *Reading Physician: * Rios Calzada MD Indications: CVA. History: Risk factors: Hypertension. Diabetes mellitus. Dyslipidemia. Conclusions Summary: - Left ventricle: Systolic function is normal. The estimated ejection fraction is 55-60%. Wall motion is normal; there are no regional wall motion abnormalities. - Atrial septum: A PFO is not demonstrated by color Doppler or agitated saline contrast. Negative bubble study. - Aortic valve: There is no evidence of stenosis. - Tricuspid valve: There is trace regurgitation. - Pulmonary arteries: Systolic pressure can not be accurately estimated. - Study data: No prior study is available for comparison. Study data: Transthoracic echocardiogram. Procedure: Transthoracic echocardiography was performed. Image quality was good. A bubble study was performed. Complete 2D, spectral Doppler, and color flow Doppler. Location: Bedside. Patient status: Inpatient. Patient room number: 433. No prior study is available for comparison. Rhythm: Normal sinus rhythm. Findings Left ventricle: The cavity size is normal. Wall thickness is normal. Systolic function is normal. The estimated ejection fraction is 55-60%. Wall motion is normal; there are no regional wall motion abnormalities. There is no consistent Doppler evidence of clinically significant diastolic dysfunction. Right ventricle: The cavity size is normal. Systolic function is normal. Left atrium: The atrium is normal in size. Right atrium: The atrium is normal in size. Atrial septum: A PFO is not demonstrated by color Doppler or agitated saline contrast. Negative bubble study. Mitral valve: The leaflets are mildly thickened. There is no evidence of stenosis. There is trace regurgitation. Aortic valve: The valve is trileaflet. The leaflets are mildly thickened. Moderate focal calcification involving the noncoronary cusp. There is no evidence of stenosis. There is no significant regurgitation. Tricuspid valve: The leaflets are normal thickness. There is no evidence of stenosis. There is trace regurgitation. Pulmonic valve: The leaflets are normal thickness. There is no evidence of stenosis. There is no significant regurgitation. Aorta: Aortic arch: The aortic arch is poorly visualized. The aortic root appears normal. Pericardium: There is no significant pericardial effusion. Pulmonary arteries: Systolic pressure can not be accurately estimated. Systemic veins: Inferior vena cava: The vessel is normal in size. There is (>= 50%) respiratory change in the IVC dimension. Measurements Left ventricle Value Ref Right atrium continued Value Ref NENA, LAX (L) 4.0 cm 4.2 - 5.8 ML dim, ES, A4C 2.7 cm 2.6 - 4.4 ESD, LAX 2.6 cm 2.5 - 4.0 Estimated RAP 8 mm Hg --------- FS, LAX 35 % 25 - 43 PW, ED, LAX 1.0 cm 0.6 - 1.0 Aortic valve Value Ref E', lat teresa, TDI 10.9 cm/sec >=10.0 Teresa diam, ED 2.4 cm - -------- E/e', lat teresa, 5 Peak v, S 1.55 m/sec ---- ----- TDI VTI, S 29.4 cm --------- E', med teresa, TDI 8.7 cm/sec >=7.0 Mean grad, S 5.0 mm Hg - -------- E/e', med teresa, 6 Peak grad, S 10.0 mm Hg ---- ----- TDI LVOT/AV, VTI ratio 0.71 --------- E', avg, TDI 9.8 cm/sec E/e', avg, TDI 6 <=14 Mitral valve Value R ef Peak E 0.56 m/sec --------- LVOT Value Ref Peak A 0.38 m/sec --------- Peak carlyn, S 1.1 m/sec Decel time 95 ms --------- VTI, S 21.0 cm Peak E/A ratio 1.5 --------- Peak grad, S 5 mm Hg Mean grad, S 3 mm Hg Pulmonic valve Value Ref Peak v, S 0.87 m/sec --------- Ventricular septum Value Ref Peak grad, S 3.0 mm Hg --------- IVS, ED 1.0 cm 0.6 - 1.0 Aortic root Value Ref Right ventricle Value Ref Root diam 3.2 cm <4.1 NENA, LAX 3.0 cm Root max diam/bsa, 1.7 cm/m^2 1.3 - 2.1 NENA minor ax, 3.1 cm 1.9 - 3.5 ED A4C mid Ascending aorta Value Ref Left atrium Value Ref AAo AP diam, S 2.9 cm --------- AP dim, ES (H) 4.10 cm 3.00 - AAo AP diam/bsa, S 1.5 cm/m^2 --------- 4.00 ML dim, A4C 4.2 cm Decending aorta Value Ref SI dim, A4C 5.0 cm Darryn peak carlyn 0.5 m/sec --------- Vol/bsa, ES, 1-p 29 ml/m^2 12 - 37 A4C Right atrium Value Ref SI dim, ES 4.2 cm 3.4 - 5.3 Legend: (L) and (H) christoph values outside specified reference range. Prepared and electronically signed by Rios Calzada MD 10/31/2019 11:13
[2019-10-31 14:57] VITALS: BP 125/70
--- NOTE | 2019-11-01 08:45 | DS ---
CC: Dr. Pedro Gallo; Dr. Diana Lim* DISCHARGE SUMMARY: DATE OF ADMISSION: 10/28/19 DATE OF DISCHARGE: 10/31/19 PRIMARY CARE PHYSICIAN: Dr. Pedro Gallo. CONSULTING NEUROLOGIST: Dr. Diana Lim. DISCHARGE DIAGNOSES: 1. Acute left middle cerebral artery territory cerebrovascular accident. 2. Vitamin B12 deficiency. SECONDARY DIAGNOSES: 1. Hyperlipidemia. 2. Type 2 diabetes. 3. Hypertension. MEDICATION LIST: 1. Acetaminophen 650 mg p.o. q.4 hours p.r.n. pain or fever. 2. Candesartan 4 mg p.o. daily. 3. Metformin 1000 mg p.o. b.i.d. 4. Senna 1 tablet p.o. b.i.d. as needed for constipation. New medications: 1. Aspirin 81 mg p.o. daily. 2. Clopidogrel 75 mg p.o. daily. 3. Atorvastatin 80 mg p.o. daily. 4. Vitamin B12 1000 mcg p.o. daily. 5. Folic acid 1 mg p.o. daily. 6. Pyridoxine 100 mg p.o. daily. Medication changed: Glipizide was increased from 10 mg p.o. daily to 10 mg p.o. b.i.d. HOSPITAL COURSE: Mr. Duong is a 54-year-old male with a past medical history stated above that presented to the emergency room with complaints of ongoing difficulty with word finding. For more details about his presentation, I refer you to his history and physical. The patient was admitted for further workup and he had a CT of the brain without contrast that showed no intracranial mass or hemorrhage. MRI of the brain showed a 3.5 cm acute/early subacute ischemic infarct at the left frontal lobe extending to the left insula. MRI of the head and neck showed no hemodynamically significant stenosis or large vessel occlusion. The patient was seen in consultation by Neurology (Dr. Lim) and his initial impression was that the patient had an acute left MCA vascular territory ischemic infarction of unclear etiology with an NIH stroke scale of 3. He did not think he was a candidate for Alteplase therapy or mechanical thrombectomy due to his low NIH stroke scale. He recommended aspirin and Plavix load. The patient also had an EEG that was abnormal due to the presence of intermittent focal slowing over the left frontotemporal region suggestive of focal neuronal dysfunction in the left frontotemporal region consistent with his recent history of acute stroke in that distribution. There were no epileptiform discharges or electrographic seizures. The patient's lipid profile revealed an LDL of 87 and his hemoglobin A1c was 10.7. The patient is a vegetarian. He was found to have vitamin B12 deficiency with a B12 level of 91. He received parenteral repletion while in the hospital and he is being discharged with supplemental p.o. but his levels will need to be monitored as an outpatient. Dr. Lim also recommended adding pyridoxine and folic acid for at least 6 months. At the time of discharge, methylmalonic acid and homocysteine levels are pending. They need to be followed as an outpatient. As there is no clear etiology for his stroke, it was postulated that his vitamin B12 deficiency could increase his homocysteine level increasing his risk for thrombosis. While in the hospital, the patient was monitored on telemetry and he had no significant arrhythmias. Neurology recommendation was for the patient to follow up with his PCP to be referred to Cardiology for a loop recorder searching for atrial fibrillation. The patient had a transthoracic echocardiogram that showed ejection fraction of 50% to 60% with normal wall motion and PFO not demonstrated. The patient had an NIH stroke scale of 2 on the day of discharge. He offered no new complaints he was seen by Speech Therapy and he was found to have no motor or speech deficits but had moderate expressive aphasia characterized by word retrieval difficulty to formulate complete sentences and conversation. They recommendation was for outpatient speech therapy and the patient received information on how to schedule this as an outpatient and case coordinator also assisted with outpatient referral. The patient was noted to have a hemoglobin A1c of 10.7 and for the reason, his glipizide was increased to 10 mg twice a day, but he will need further monitoring as an outpatient to continue to modify his risk factors. He is medically stable to be discharged to home today to follow up with his primary care provider as an outpatient. PHYSICAL EXAMINATION: Temperature 97.6, heart rate is 86, respiratory rate is 16, oxygen saturation was 98% on room air, blood pressure is 125/70. General: The patient is a pleasant, middle-aged gentleman, sitting up in bed, in no acute distress. CVS: Normal S1 and S2. Regular rate and rhythm. Chest: Breath sounds bilaterally with no added sounds. Abdomen: Soft, bowel sounds present. Neuro: He is alert and oriented x3. Able to move all 4 extremities with moderate expressive aphasia, but can carry on conversation and be understood. DIET: Heart healthy, consistent carb diet. ACTIVITIES: As tolerated. DISPOSITION: To home. STATUS IN THE HOSPITAL: Inpatient. CONDITION AT THE TIME OF DISCHARGE: Fair. Please keep in mind this is a summarized version of this patient's hospital stay. If you need more information, please feel free to call me at [phone] or please obtain the full medical records. Approximately 45 minutes was spent to complete this discharge. [id number]/[facility] #: [id number] MTDD
== END 2019-10-31 14:14 | disposition home or self-care (01) | DRG 66 ==
LOC: ED 11:00 → MEDTELE 14:34 → ED 15:35 → OBSVTOIN 18:00
PROVIDERS: ADMIT Physician Assistant; ATTEND Internal Medicine
DX: I63.89 Other cerebral infarction (principal); R47.01 Aphasia; R29.810 Facial weakness; R40.2432 Glasgow coma scale score 3-8, at arrival to emergency department; E53.8 Deficiency of other specified B group vitamins; E78.5 Hyperlipidemia, unspecified; E11.9 Type 2 diabetes mellitus without complications; I10 Essential (primary) hypertension; Z79.84 Long term (current) use of oral hypoglycemic drugs; Z79.899 Other long term (current) drug therapy; Z87.891 Personal history of nicotine dependence
CPT/HCPCS: 36415; 70450; 70544; 70547; 70551; 71045; 80053; 80061; 80307; 80320; 80329; 81003; 81015; 82140; 82607; 83036; 83090; 83605; 83921; 84443; 85025; 93005; 93306; 95816; 99283; A9270-GY; G0480; J3420